=== PATIENT | male | born 1960 | race Caucasian/White ===

== ENCOUNTER 2024-01-03 13:23 | Outpatient (CLI) | payer MEDICAID | END 2024-01-03 23:59 | disposition home or self-care (01) | LOC: CARD DIAG 13:23 | PROVIDERS: ATTEND Family Medicine | DX: I37.1 Nonrheumatic pulmonary valve insufficiency (principal); K70.31 Alcoholic cirrhosis of liver with ascites | CPT/HCPCS: 93306 ==

== ENCOUNTER 2024-07-12 08:24 | Outpatient (CLI) | payer MEDICAID ==
[~2024-07-12] VITALS: Ht 175.3 cm; Wt 72.6 kg
[2024-07-12] MEDS: albuterol 2.5 MG/3 ML nebule NEB ONE (08:59)
[2024-07-12 09:01] VITALS: PULSE 72; RESP 16; O2SAT 97
[2024-07-12 09:12] VITALS: PULSE 87; RESP 16
--- NOTE | 2024-07-12 10:27 | PROCEDURE NOTE - Respiratory ---
Procedure Note-Respiratory Providers to CC Copies To 1: EWELINA SCHROEDER DO Procedure Name: This is a spirometry study dated July 12, 2024. The spirometry study was performed both before and after inhaled bronchodilator. Spirometry measurements: Both the forced vital capacity and the FEV1 are in the normal range. The FEV1 ratio however is somewhat depressed. Several of the flow rate measurements show significant reduction. After inhaled bronchodilator was administered, the FEV1 and some of the flow rates show some improvement. Conclusion: This study shows abnormality. There is evidence for obstructive ventilatory defect in the mild category. These findings are consistent with the patient's diagnosis of smoking-related COPD. It is strongly recommended that the patient abstain from cigarette smoking. Bronchodilator therapy would likely help this patient. We have no previous studies for comparison. LUIS FERNANDO MOORE MD July 12, 2024 10:27
== END 2024-07-12 23:59 | disposition home or self-care (01) ==
LOC: RT 08:24
PROVIDERS: ATTEND Family Medicine
DX: J44.9 Chronic obstructive pulmonary disease, unspecified (principal); Z76.89 Persons encountering health services in other specified circumstances
CPT/HCPCS: 94060; 94760